=== PATIENT | female | born 1985 | race Caucasian/White ===

== ENCOUNTER 2021-05-25 06:41 | Inpatient (IN) ==
[2021-05-25 06:28] LABS: Basophils % 0.2 %; Eosinophils # 0.1 K/mcL (0.0-0.6); Eosinophils % 1.1 %; Hematocrit 40.4 % (35.3-44.9); Hemoglobin 13.4 g/dL (11.5-15.4); Immature Granulocytes % 0.5 % (0-4); Lymphocytes % 10.9 %; Mean Corpuscular HGB Conc 33.2 g/dL (31.6-35.5); Mean Corpuscular Hemoglobin 28.8 pg (28.0-33.3); Mean Corpuscular Volume 86.9 fL (83.0-100.0); Mean Platelet Volume 12.2 fL (9.4-12.4); Monocytes # 0.6 K/mcL (0.0-1.3); Monocytes % 7.2 %; Platelet Count 162 K/mcL (140-400); Red Blood Count 4.65 M/mcL (3.82-4.97); Red Cell Distribution Width 14.2 % (11.5-14.5); Segmented Neutrophils % 80.1 %; White Blood Count 8.7 K/mcL (4.3-11.1)
[~2021-05-25 06:41] MED LIST: Famotidine 20 MG/2 ML VIAL IVP PRN; Metoclopramide 10 MG/2 ML VIAL IVP PRN; Naloxone 0.4 MG/ML INJ IVP PRN; Ondansetron 4 MG/2 ML VIAL IVP PRN; Penicillin G Potassium 5,000,000 UNIT in 0.9 % Sodium Chloride Mini Bag 100 ML IVPB ONE; Ringers Solution, Lactated 1,000 ML IVC SCH; Ringers Solution, Lactated 1,000 ML ONE
[2021-05-25 07:06] LABS: Influenza A PCR Negative (Negative); Influenza B PCR Negative (Negative); Resp. Syncytial Virus PCR Negative (Negative)
[2021-05-25 07:54] LABS: SARS-CoV-2 by PCR (In House) Negative (Negative)
[2021-05-25] MEDS ORDERED: *HR* Propofol 200 MG/20 ML VIAL IVP ONE (08:00)
[2021-05-25] MEDS ORDERED: Oxytocin 20 units/ LR 1000 mL 20 UNIT/1,000 ML BAG IVC ONE ×2 (08:10→08:16)
[2021-05-25] MEDS ORDERED: Ondansetron 4 MG/2 ML VIAL ONE (08:12)
[2021-05-25] MEDS ORDERED: Azithromycin 500 MG in 0.9 % Sodium Chloride 250 ML IVPB ONE (08:15)
[2021-05-25] MEDS ORDERED: *HR* FentaNYL (PF) 100 MCG/2 ML VIAL ONE (08:16)
[2021-05-25] MEDS ORDERED: Acetaminophen IV 1,000 MG/100 ML BAG IVPB ONE (08:20)
[2021-05-25] MEDS ORDERED: Ketorolac 30 MG/ML VIAL ONE (08:27)
[2021-05-25] MEDS ORDERED: Ondansetron 4 MG/2 ML VIAL IVP PRN ×2 (09:15→11:25)
[2021-05-25] MEDS ORDERED: Promethazine 6.25 MG in Water for inj. (sterile) 20 ML IVPB PRN (09:15)
[2021-05-25] MEDS ORDERED: *HR* HYDROmorphone PF 0.5 MG/0.5 ML SYRINGE IVP PRN (09:15)
[2021-05-25] MEDS ORDERED: Penicillin G Potassium 2,500,000 UNIT/105 ML MLS IVPB SCH (10:30)
[2021-05-25 11:06] LABS: Amphetamine Screen,Urine Negative ng/mL (Cutoff=1000); Barbiturate Screen,Urine Negative ng/mL (Cutoff=200); Benzodiazepines Screen,Urine Negative ng/mL (Cutoff=200); Cannabinoid Screen,Urine Negative ng/mL (Cutoff = 50); Cocaine Screen,Urine Negative ng/mL (Cutoff= 300); Opiate Screen,Urine Negative ng/mL (Cutoff=300); Phencyclidine Screen,Urine Negative ng/mL (Cutoff=25)
[2021-05-25] MEDS ORDERED: Morphine PCA 30 MG/ 30 ML 30 ML PCA.VIAL IVC PRN (11:25)
[2021-05-25] MEDS ORDERED: *HR* OxyCODONE Immed Rel 5 MG TABLET PO PRN (11:25)
[2021-05-25] MEDS ORDERED: Metoclopramide 10 MG/2 ML VIAL IVP PRN (11:25)
[2021-05-25] MEDS ORDERED: Simethicone 80 MG TAB.CHEW PO PRN (11:25)
[2021-05-25] MEDS ORDERED: Ringers Solution, Lactated 1,000 ML IVC SCH (11:25)
[2021-05-25] MEDS ORDERED: Rho Immune Globulin 1,500 UNIT SYRINGE IM ONE (11:25)
[2021-05-25] MEDS: Oxytocin 20 units/ LR 1000 mL 20 UNIT/1,000 ML BAG IVC SCH ×2 (12:38→20:23)
[2021-05-25] MEDS: metroNIDAZOLE 500 MG TABLET PO SCH ×2 (14:28→20:22)
[2021-05-25] MEDS: Ibuprofen 600 MG TABLET PO SCH ×2 (14:28→20:22)
[2021-05-25] MEDS: cephALEXin 500 MG CAPSULE PO SCH ×2 (14:28→20:22)
[2021-05-25] MEDS: Acetaminophen 325 MG TABLET PO SCH ×2 (14:28→23:52)
[2021-05-26] MEDS: Ibuprofen 600 MG TABLET PO SCH ×4 (02:28→23:14)
[2021-05-26] MEDS: Acetaminophen 325 MG TABLET PO SCH ×3 (05:10→20:26)
[2021-05-26 05:33] LABS: Basophils % 0.3 %; Eosinophils % 0.3 %; Hematocrit 31.9 % (35.3-44.9); Immature Granulocytes % 0.4 % (0-4); Lymphocytes # 1.6 K/mcL (0.6-4.6); Lymphocytes % 14.1 %; Mean Corpuscular HGB Conc 32.3 g/dL (31.6-35.5); Mean Corpuscular Hemoglobin 28.9 pg (28.0-33.3); Mean Corpuscular Volume 89.4 fL (83.0-100.0); Mean Platelet Volume 11.8 fL (9.4-12.4); Monocytes # 0.7 K/mcL (0.0-1.3); Monocytes % 5.8 %; Neutrophils # 8.9 K/mcL (1.6-8.9); Platelet Count 148 K/mcL (140-400); Red Blood Count 3.57 M/mcL (3.82-4.97); Red Cell Distribution Width 14.2 % (11.5-14.5); Segmented Neutrophils % 79.1 %; White Blood Count 11.3 K/mcL (4.3-11.1)
[2021-05-26 05:37] LABS: Hemoglobin 10.3 g/dL (11.5-15.4)
[2021-05-26] MEDS: metroNIDAZOLE 500 MG TABLET PO SCH ×3 (09:03→20:28)
[2021-05-26] MEDS: cephALEXin 500 MG CAPSULE PO SCH ×3 (09:03→20:25)
[2021-05-26] MEDS: Prenatal Vit/FA 1 EACH TABLET PO SCH (09:04)
[2021-05-26] MEDS ORDERED: NIFEdipine XL (24 HR) 30 MG TAB.ER.24 PO SCH (09:45)
[2021-05-26 11:29] LABS: Alanine Aminotransferase 34 Units/L (7-52); Aspartate Amino Transferase 78 Units/L (13-39); BUN/Creatinine Ratio 14 (6-26); Blood Urea Nitrogen 9 mg/dL (6-20); Lactate Dehydrogenase 298 Units/L (140-271); Uric Acid 7.4 mg/dL (2.3-7.6); eGFR For African Americans > 60 (> 60); eGFR For Non-African Americans > 60 (> 60)
[2021-05-27] MEDS: Acetaminophen 325 MG TABLET PO SCH ×2 (02:38→08:25)
[2021-05-27 04:58] LABS: Alanine Aminotransferase 34 Units/L (7-52); Aspartate Amino Transferase 55 Units/L (13-39); eGFR For African Americans > 60 (> 60); eGFR For Non-African Americans > 60 (> 60)
[2021-05-27] MEDS: Ibuprofen 600 MG TABLET PO SCH ×2 (06:05→12:58)
[2021-05-27 08:03] VITALS: TEMP 98.8; O2SAT 98
[2021-05-27] MEDS: metroNIDAZOLE 500 MG TABLET PO SCH (08:24)
[2021-05-27] MEDS: Prenatal Vit/FA 1 EACH TABLET PO SCH (08:24)
[2021-05-27 10:13] VITALS: BP 146/82; PULSE 59
== END 2021-05-27 15:15 | disposition home or self-care (01) | DRG 788 ==
LOC: 1NENULAB → 1NENUOBS 11:15
PROVIDERS: ADMIT Obstetrics & Gynecology; ATTEND Obstetrics & Gynecology